=== PATIENT | female | born 1975 | race Caucasian/White ===

== ENCOUNTER 2018-02-17 17:37 | Emergency (ER) | END 2018-02-17 19:50 | disposition home or self-care (01) ==

== ENCOUNTER 2019-02-07 14:30 | Emergency (ER) | payer OTHER ==
[~2019-02-07] VITALS: Wt 89.0 kg
[~2019-02-07 14:30] MED LIST: CEPH-443 PO; CYCL10TA7 PO; FAMO-96 PO; HYDR-3498 PO; ZOF8 PO
[2019-02-07 14:33] VITALS: BP 163/71; PULSE 97; RESP 18
[2019-02-07] MEDS ORDERED: ONDA4TAB14 PO (15:56)
[2019-02-07] MEDS ORDERED: LIDOCAINE/MYLANTA 40 ML BTL PO ONE (16:00)
--- NOTE | 2019-02-07 16:10 | ERD ---
ER Documentation Chief Complaint Chief Complaint AP SINCE YESTERDAY HPI 43-year-old female with no reported past medical history, surgical history significant for gastric sleeve surgery over a year ago, status post cystectomy who presents with complaint of left upper quadrant abdominal pain. Had intermittent nausea no episodes of vomiting. She denies radiation of pain, fevers, chills, chest pain, shortness of breath, pelvic pain, urinary symptoms, vaginal bleeding or discharge. Past menstrual period about 2 weeks ago reported as normal. Patient states she does not have any reason to believe that she is . She denies any history of complications status post gastric sleeve surgery, reporting good health prior to this episode. Denies EtOH abuse, drug abuse, recent over the counter medication use or antibiotic use. States she has been under a lot of stress recently and thinks this may be related to her stress conditions. ROS All systems reviewed and are negative except as per history of present illness. Medications Home Meds Active Scripts Ondansetron (Ondansetron Odt) 4 Mg Tab.rapdis, 4 MG PO Q6H PRN for NAUSEA AND/OR VOMITING, #10 TAB Prov:STEFFANY SAVAGE PA-C 02/07/19 Cephalexin* (Keflex*) 500 Mg Capsule, 500 MG PO QID for 7 Days, CAP Prov:NEENA GOMEZ MD 02/17/18 Ondansetron Hcl* (Zofran*) 8 Mg Tab, 8 MG PO Q6H PRN for NAUSEA AND OR VOMITING, #20 TAB Prov:NEENA GOMEZ MD 02/17/18 Famotidine* (Pepcid*) 20 Mg Tablet, 20 MG PO BID for 14 Days, TAB Prov:NEENA GOMEZ MD 02/17/18 Hydrocodone Bit-Acetaminophen* ([place]*) 5-325 Mg Tab, 1 TAB PO Q6 PRN for PAIN, #20 TAB Prov:KIMBERLEE FARIAS NP 04/21/15 Cyclobenzaprine Hcl* (Cyclobenzaprine Hcl*) 10 Mg Tablet, 5 MG PO TID, #15 TAB Prov:KIMBERLEE FARIAS NP 04/21/15 PMhx/Soc History of Surgery: Yes (lap band, c section x 2, gall bladder sx) Anesthesia Reaction: No Hx Neurological Disorder: No Hx Respiratory Disorders: No Hx Cardiac Disorders: No Hx Psychiatric Problems: No Hx Miscellaneous Medical Probl: No Hx Alcohol Use: Yes (occassionally) Hx Substance Use: No Hx Tobacco Use: Yes Smoking Status: Light tobacco smoker FmHx Family History: No diabetes, No coronary disease, No other Physical Exam Vitals Vital Signs Date Temp Pulse Resp B/P (MAP) Pulse Ox O2 O2 Flow FiO2 Time Delivery Rate 02/07/19 97.9 97 18 163/71 99 14:33 (101) Physical Exam I have reviewed the triage vital signs. Const: Well nourished, well developed, appears stated age Eyes: PERRL, no conjunctival injection HENT: NCAT, Neck supple without meningismus CV: RRR, Warm, well-perfused extremities RESP: CTAB, Unlabored respiratory effort GI: soft, non-tender, non-distended, no masses MSK: No gross deformities appreciated Skin: Warm, dry. No rashes Neuro: grossly non focal Psych: Appropriate mood and affect. Results 24 hrs Current Medications Medications Dose Sig/Ray Start Time Status Last (Trade) Ordered Route PRN Stop Time Admin Dose Reason Admin 40 ml ONCE ONCE 02/07/19 Miscellaneous PO 16:00 Medication 02/07/19 16:01 (Gi Cocktail (2)) Procedures/MDM 43-year-old female presents with left upper quadrant abdominal pain. She is nontoxic-appearing and has a completely reassuring abdominal and physical exam. This patient presents with abdominal pain of unclear etiology. Their evaluation has not identified a emergent etiology for the abdominal pain. Specifically, given the very benign exam I have a very low suspicion for appendicitis, ischemic bowel, bowel perforation, or any other life threatening disease. ED course: Patient refuses urine test, UA at this time Symptoms improved with GI cocktail Explained in detail strict return precautions DISPOSITION PLAN: We discussed follow up with the patient's primary care doctor within 24 to 48 hours. Patient counseled regarding my diagnostic impression and care plan. Prior to discharge all questions answered. Pt agrees with treatment plan and understands strict return precautions. Precautionary instructions provided including instructions to return to the ER if not improving or for any worsening or changing symptoms or concerns. Disclaimer: Inadvertent spelling and grammatical errors are likely due to EHR/dictation software use and do not reflect on the overall quality of patient care. Also, please note that the electronic time recorded on this note does not necessarily reflect the actual time of the patient encounter. Departure Diagnosis: Primary Impression: Abdominal pain Condition: Stable Patient Instructions: Abdominal Pain Referrals: [facility] YOU HAVE RECEIVED A MEDICAL SCREENING EXAM AND THE RESULTS INDICATE THAT YOU DO NOT HAVE A CONDITION THAT REQUIRES URGENT TREATMENT IN THE EMERGENCY DEPARTMENT. FURTHER EVALUATION AND TREATMENT OF YOUR CONDITION CAN WAIT UNTIL YOU ARE SEEN IN YOUR DOCTORS OFFICE WITHIN THE NEXT 1-2 DAYS. IT IS YOUR RESPONSIBILITY TO MAKE AN APPOINTMENT FOR FOLOW-UP CARE. IF YOU HAVE A PRIMARY DOCTOR --you should call your primary doctor and schedule an appointment IF YOU DO NOT HAVE A PRIMARY DOCTOR YOU CAN CALL OUR PHYSICIAN REFERRAL HOTLINE AT IF YOU CAN NOT AFFORD TO SEE A PHYSICIAN YOU CAN CHOSE FROM THE FOLLOWING [facility] [address] [facility]. [facility] [address] [facility] [address] [facility] [address] [facility]. [facility] [address] [facility]. [facility] [address] Additional Instructions: Call your primary care doctor TOMORROW for an appointment during the next 2-3 days.See the doctor sooner or return here if your condition worsens before your appointment time. STEFFANY SAVAGE PA-C February 07, 2019 16:09
== END 2019-02-07 16:12 | disposition home or self-care (01) ==
LOC: FTE 14:30
DX: R10.12 Left upper quadrant pain (principal); F17.210 Nicotine dependence, cigarettes, uncomplicated
CPT/HCPCS: Z7502; Z7610; 99283